=== PATIENT | female | born 1995 | race Two or more races ===

== ENCOUNTER 2021-01-12 14:51 | Outpatient (CLI) | payer OTHER | END 2021-01-12 14:52 | disposition home or self-care (01) | LOC: LAB 14:51 | PROVIDERS: ATTEND Family Medicine | DX: B20 Human immunodeficiency virus [HIV] disease (principal); K75.89 Other specified inflammatory liver diseases; B19.20 Unspecified viral hepatitis C without hepatic coma; B19.10 Unspecified viral hepatitis B without hepatic coma ==